=== PATIENT | male | born 1955 | race African-American/Black ===

== ENCOUNTER 2018-07-31 10:32 | Emergency (ER) | payer OTHER ==
[2018-07-31 12:12] VITALS: BP 149/74
== END 2018-07-31 12:12 | disposition home or self-care (01) | DRG 552 ==
LOC: ED 10:32
DX: M54.5 Low back pain (principal); M25.521 Pain in right elbow; V48.5XXA Car driver injured in noncollision transport accident in traffic accident, initial encounter